=== PATIENT | male | born 2000 | race Hispanic/Latino ===

== ENCOUNTER 2022-02-21 18:33 | Emergency (ER) ==
[2022-02-21] MEDS ORDERED: diphenhydrAMINE 50 MG/ML VIAL ONE (20:46)
[2022-02-21] MEDS ORDERED: Ketorolac Tromethamine 30 MG/ML VIAL ONE (20:46)
[2022-02-21] MEDS ORDERED: Metoclopramide HCl 10 MG/2 ML VIAL ONE (20:46)
[2022-02-21 21:11] LABS: #Eosinphils 0.5 thou/uL (0.0-0.7); #Lymphocytes 3.7 thou/uL (1.20-3.40); #Monocytes 1.2 thou/uL (0.11-0.59); #Neutrophils 5.2 thou/uL (1.40-6.50); %Basophils 0.3 % (0.0-1.0); %Eosinophils 4.4 % (0.0-10.0); %Lymphocytes 34.7 % (28.0-48.0); %Monocytes 11.1 % (0.0-4.0); %Neutrophils 49.6 % (31.0-61.0); Hemoglobin 15.9 g/dL (14.0-18.0); Mean Corpuscular HGB CONC 34.1 g/dL (32.0-36.0); Mean Corpuscular Volume 90.9 fL (78.0-98.0); Platelet Count 273 thou/uL (130-400); RBC Distribution Width 11.6 % (11.5-14.5); Red Blood Cell (RBC) Count 5.12 mill/uL (4.00-5.20); White Blood Cell (WBC) Count 10.6 thou/uL (4.8-10.8)
[2022-02-21 21:30] LABS: ALT (SGPT) 92 U/L (8-55); AST (SGOT) 37 U/L (5-34); Albumin 4.6 g/dL (3.5-5.0); Alkaline Phosphatase 95 U/L (50-130); Anion Gap 14 mmol/L (10-20); BUN (Urea Nitrogen) 15 mg/dL (8.9-20.6); Bilirubin, Total 0.5 mg/dL (0.2-1.2); Calc. Creatinine Clearance 0 mL/min (70-130); Calcium 9.4 mg/dL (7.8-10.44); Carbon Dioxide 24 mmol/L (22-29); Chloride 108 mmol/L (98-107); Estimated GFR 128; Globulin 3.1 g/dL (2.4-3.5); Glucose 94 mg/dL (70-105); Protein, Total 7.7 g/dL (6.0-8.3); Sodium 142 mmol/L (136-145)
== END 2022-02-21 22:59 | disposition home or self-care (01) ==
LOC: ERS 18:33
DX: R51.9 Headache, unspecified (principal); R29.700 NIHSS score 0
CPT/HCPCS: 70450; 80053; 85025; 96365; 96366; 96375; J1200; J1885; J2765

== ENCOUNTER 2022-02-24 16:10 | Emergency (ER) | payer SELFPAY ==
[~2022-02-24 16:10] MED LIST: Iopamidol-370 76% 500 ML 1 ML ONE
[2022-02-24] MEDS ORDERED: Acetaminophen 500 MG TAB ONE (17:12)
[2022-02-24] MEDS ORDERED: Metoclopramide HCl 10 MG/2 ML VIAL ONE (17:12)
[2022-02-24] MEDS ORDERED: diphenhydrAMINE 50 MG/ML VIAL ONE (17:12)
== END 2022-02-24 20:14 | disposition home or self-care (01) ==
LOC: ERS 16:10
DX: R51.9 Headache, unspecified (principal)
CPT/HCPCS: 70496; 96374; 96375; J1200; J2765; Q9967